=== PATIENT | male | born 1990 | race Caucasian/White ===

== ENCOUNTER 2022-07-18 03:39 | Emergency (ER) | payer SELFPAY ==
[~2022-07-18] VITALS: Ht 175.3 cm; Wt 63.5 kg
--- NOTE | 2022-07-18 04:30 | NUR ---
Dr Butt at bedside MSE in progress
[2022-07-18] MEDS ORDERED: KETOROLAC TROMETHAMINE 60 MG INJ IM ONE ×2 (04:45→04:46)
--- NOTE | 2022-07-18 05:30 | NUR ---
PATIENT AMBULATORY WITH STEADY GAIT, NAD NOTED. PATIENT IS A/OX4
[2022-07-18] MEDS ORDERED: HYDR-4209 PO (06:53)
[2022-07-18] MEDS ORDERED: IBUP-1958 PO (06:53)
--- NOTE | 2022-07-18 06:54 | NUR ---
Patient discharged to home in stable condition. Written and verbal after care instructions given. Patient verbalizes understanding of instructions. Stressed follow up or return to ER for worsening s/s. PATIENT IS A/OX4, NAD NOTED. PATIENT AMBULATED WITH STEADY GAIT. ACCOMPANIED BY HIS SO
[2022-07-18 07:02] VITALS: BP 127/76
== END 2022-07-18 07:03 | disposition home or self-care (01) ==
LOC: ER 03:44
DX: M79.10 Myalgia, unspecified site (principal); R51.9 Headache, unspecified; R07.89 Other chest pain; M54.6 Pain in thoracic spine; M25.512 Pain in left shoulder; F17.210 Nicotine dependence, cigarettes, uncomplicated; W18.39XA Other fall on same level, initial encounter; Y93.89 Activity, other specified; Y92.89 Other specified places as the place of occurrence of the external cause; Y99.8 Other external cause status
CPT/HCPCS: 99285; 70450; 71045; 71101; 72125; 96372; J1885; A4663